=== PATIENT | male | born 1945 | race Caucasian/White ===

== ENCOUNTER → 2017-10-03 | Outpatient (CLI) | payer OTHER, MEDICARE ==
[~2017-10-03] MED LIST: ASPIRIN ADULT L81 M1 PO; HYDROCODONE-AC1 EAC1 PO; MORPHINE S10 MG/5 M1 PO; TAMSULOSIN HCL0.4 MG PO
== END | disposition home or self-care (01) ==
LOC: US 10:39
DX: R10.9 Unspecified abdominal pain (principal); R39.198 Other difficulties with micturition

== ENCOUNTER 2017-10-10 10:02 | Inpatient (IN) | payer OTHER, MEDICARE ==
[~2017-10-10] VITALS: Ht 185.4 cm; Wt 122.7 kg
--- NOTE | ~2017-10-10 | CON ---
[place], [place] REPORT OF CONSULTATION [id number] UNIT #: [id number] ROOM: 426 DOCTOR: SAÚL FELICIANO MD BIRTHDATE: [birth year] DOS: 10/11/2017 HISTORY OF PRESENT ILLNESS: The patient is a pleasant 71-year-old [place] gentleman who says that if he became dizzy and fell down, started having pain in the right shoulder. He also has been complaining of right rib pain and upper abdominal pain. He thought it was just a fall, which is causing the pain, but subsequently his brought him to the ER. Further workup revealed consistent with CAT scans that he has a mass in the liver as well as mets to the bones and consulted for further evaluation and management. PAST MEDICAL HISTORY: Denies any past medical history. PAST SURGICAL HISTORY: Appendectomy, tonsillectomy. SOCIAL HISTORY: No history of transfusion. Current 1 pack per day smoking. FAMILY HISTORY: Father congestive heart failure. Mother, congestive heart failure. ALLERGIES: PENICILLIN AND ANTIBIOTICS. MEDICATIONS: Aspirin. RADIOLOGY: CT scan of the chest, abdomen, and pelvis done on 10/10/2017 showed multiple destructive bony metastases as well as a large mass in the anterior left fifth rib, an additional mass in the right 4th rib, suspected metastasis to the right 7th and 10th rib in the medial left ilium in the right sacral body, right iliac wing and possible metastasis at C6. He has a large mass suspected in the right lobe of the liver, an incidental cholelithiasis. REVIEW OF SYSTEMS CONSTITUTIONAL: No chills. No fatigue. No fever. No loss of appetite. No night sweats. No weakness. No weight loss. HEENT: No trouble swallowing. No loss of smell. No loss of hearing. No double vision. No pain. No discharge. ENT AND RESPIRATORY: No wheeze. No sore throat. No change in voice. No hearing loss. No nose bleed. No cough. No trouble breathing through nose. No shortness of breath. No coughing up blood. No epistaxis. CARDIOVASCULAR: No chest pain. No dizziness. No irregular heartbeat. No leg edema. No pain in legs while walking. No palpitations. No shortness of breath. DERMATOLOGIC: No acne. No hives. No laceration. No mole. No rash. ENDOCRINE: No cold intolerance. No diabetes. No fatigue. No hot flashes. No polydipsia. No polyuria. No urinating frequently. No weight loss. HEMATOLOGIC AND LYMPH: No fatigue. No easy bruising. GASTROENTEROLOGIC: No change in bowel habits. No indigestion. No frequent bloating. No vomiting blood. No abdominal cramping. No nausea. No heartburn. No vomiting. No abdominal pain. No dysphagia. No diarrhea. No constipation. No blood in stool. MALE REPRODUCTIVE: No testicular pain. No difficulty with erection. No [place], [place] REPORT OF CONSULTATION NAME: ATIF ADDISON UNIT #: [id number] ROOM: 426 DOCTOR: SAÚL FELICIANO MD BIRTHDATE: [birth year] diminished sexual drive. No penile discharge. MUSCULOSKELETAL: No back pain. No muscle pain or weakness. No neck pain. No tingling/numbness. No swelling/bruising. No osteoporosis treatment. OPTHALMOLOGIC: No double vision. No diminished vision. No loss of vision. UROLOGIC: No dysuria. No frequent nighttime urination. No pain with urination. No difficulty urinating. No blood in urine. No frequent urination. No urinary incontinence. NEUROLOGIC: No loss of sensation in specific body area. No vertigo. No burning pain in feet. No trouble with balance. No trouble with coordination. No loss of consciousness. No loss of feeling/power. No confusion. No headache. No tingling/numbness. PSYCHOLOGIC: No tinnitus. No headaches. No shortness of breath. No weight decrease. No nausea. No vomiting. No abdominal discomfort. No constipation. No diarrhea. No depression. No anxiety. PHYSICAL EXAMINATION: GENERAL: General appearance: Pleasant gentleman in no apparent distress. VITAL SIGNS: Stable. He is afebrile. HEENT: Oral mucosa appears intact. The external ears are normal in appearance. Nares are patent without lesions, exudates, erythema, or inflammation. Tongue is symmetrical. Uvula is midline. NECK AND THYROID: Neck supple without palpable masses. Trachea is midline. No thyromegaly. No carotid bruit or JVD. BREASTS: Normal. Nipples unremarkable. No drainage. No lumps felt on either side. HEART: Normal S1, S2, without significant murmur, rub, or gallop. LUNGS: Clear to auscultation and percussion with good air entry bilaterally. The patient is breathing easily without the use of accessory muscles. Diaphragmatic excursions are intact. ABDOMEN: No costovertebral angle tenderness. Soft. No organomegaly or masses. Nontender. No hernias present. Liver and spleen are not palpable. LYMPHATIC: No adenopathy noted in the cervical, supraclavicular, axillary, or inguinal regions. NEUROLGIC: Nonfocal. Oriented to person, place, and time. MENTAL STATUS: Appropriate for mood and affect. PERIPHERAL PULSES: No varicosities. Femoral and pedal pulses are palpable. EXTREMITIES: Without cyanosis, clubbing, or edema. No gross anomalies. LABORATORY DATA: Sodium 138, potassium 4.3, chloride 101, bicarbonate 30, EGFR is 56, calcium 9.4. White count of 9.8, hemoglobin 15.1, hematocrit 47.5, MCV 94.6, platelet count of 209,000. ASSESSMENT: 1. Large mass in the liver. 2. 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 3. Right shoulder injury. PLAN: We will wait for the CT-guided biopsy of the liver to be done. In the meantime, Dr. Arellano to evaluate the GI tract. We will also get tumor markers depending on further intervention. I had a detailed discussion with the patient [place], [place] REPORT OF CONSULTATION NAME: ATIF ADDISON UNIT #: [id number] ROOM: 426 DOCTOR: SAÚL FELICIANO MD BIRTHDATE: [birth year] about it, seemed to understand it. Ample time was given to the patient to ask me questions. We will follow. Workup has been ordered. Thanks for consulting and letting participate in the care of this interesting patient. SAÚL FELICIANO MD CM:CONSTR:REPORT OF CONSULTATION 0919 10/12/17 0045 interface
--- NOTE | ~2017-10-10 | O ---
[place], [place] OPERATIVE NOTE NAME: ATIF ADDISON UNIT #: [id number] ROOM: 426 DOCTOR: MILDRED DELUNA,UDAY BIRTHDATE: [birth year] DOS: 10/11/2017 The patient has presented with coincidental finding of metastatic lesions to the ribs, bone, liver, possibly mass secondary to metastasis, possibly. Today's procedure part of investigation of colonoscopy to rule out primary source. PREMEDICATIONS: Propofol. SCOPE: Olympus forwarding colonoscope 10L video. REPORT: After putting the patient in left lateral position and application of lubricant to rectal pouch and digital examination, scope was introduced. Thereafter, under direct visualization, and sent to base of cecum, ileocecal valve was defined. The scope was gradually withdrawn back to the rectal pouch. Three sessile polypoid lesions with a snare polypectomy was removed, samples recovered. The patient extubated, tolerated procedure well. IMPRESSION: Colon with 3 small sessile polypoid lesion in the rectal pouch. No source of primary carcinoma and colon identified. The patient tolerated the procedure well. PLAN ON DISCUSSION: Liver mass for biopsy to be scheduled after assuring that the patient is off aspirin and blood thinners. UDAY LEVY MD CM:OPRECORD:OPERATIVE NOTE [id number] UDAY LEVY MD 10/12/17 0516 interface
--- NOTE | ~2017-10-10 | CON ---
[place], [place] REPORT OF CONSULTATION NAME: [facility]DISON [id number] UNIT #: [id number] ROOM: 426 DOCTOR: UDAY LEVY MD BIRTHDATE: [birth year] DOS: 10/11/2017 HISTORY OF PRESENT ILLNESS: A 71-year-old patient who presented for routine evaluation during the course of evaluation, it has been found that he has a metastatic disease and workup therefore, in progress. I have been asked for a colonoscopic evaluation of the patient. However, at the time of admission, he has white blood cell of 9, H and H of 15 and 45, platelets 208,000. Comprehensive metabolic panel, alkaline phosphatase elevation to 176. C-reactive protein 3. BNP 134. Troponin normal. Lactic acid 4.3. INR 1.0, right shoulder x-ray, normal right shoulder, there is no evidence of injury. CT scan of the abdomen and pelvis was done and suspected limited contrast. I expected inferior L3 vertebral body fracture and multiple large destructive bone metastases left ribs and right 7th ribs and details per chart large suspected right lobe of liver mass, incidental cholelithiasis all has been recognized. Normal right humerus and urine cultures negative. PAST MEDICAL HISTORY: Associated medical surgical history, appendectomy, tonsillectomy. SOCIAL HISTORY: In the past alcohol consumer, smoker, presently 1 pack a day. ALLERGIES: PENICILLIN. MEDICATIONS: At home limited to aspirin. REVIEW OF SYSTEMS: HEENT: Denies double vision, blurred vision. RESPIRATORY: Denies shortness of breath. CARDIOVASCULAR: Denies chest pain. DIGESTIVE SYSTEM: No nausea, vomiting, no diarrhea. PHYSICAL EXAMINATION: VITAL SIGNS: Stable. HEENT: Head normocephalic, nontraumatic. Mouth and buccal mucosa benign. NECK: Supple, no thyromegaly, no cervical lymphadenopathy. CHEST: Symmetric anatomy, equal expansion. No wheeze, no rhonchi. HEART: Normal sinus rhythm, no gallop, no murmur. ABDOMEN: Soft. No hepato-organomegaly. Bowel sounds present. No pulsatile mass. EXTREMITIES: No cyanosis, no pedal edema. NEUROLOGIC: Alert, oriented to time, place, person. IMPRESSION: Metastatic disease to bone and liver. PLAN AND DISCUSSION: We are going to do a colonic screening to rule out the source of metastasis from colon. Other adjunctive diagnoses, bony lytic lesions and elevated alkaline phosphatase and plans for definitive tissue diagnosis as needed, liver biopsy under sonographic guidance needed. Thank you very much indeed. We are going to proceed with colonoscopy. [place], [place] REPORT OF CONSULTATION NAME: ATIF ADDISON UNIT #: [id number] ROOM: 426 DOCTOR: UDAY LEVY MD BIRTHDATE: [birth year] UDAY LEVY MD CM:CONSTR:REPORT OF CONSULTATION 1453 10/12/17 0514 interface
--- NOTE | ~2017-10-10 | EKG ---
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
[2017-10-10 10:06] VITALS: BP 163/79
[2017-10-10] MEDS ORDERED: TAMSULOSIN HCL0.4 MG PO (10:06)
[2017-10-10 11:14] LABS: BASO # 0.1 10*3/uL (0.0-0.1); BASO % 0.6 % (0.0-1.0); EOS # 0.1 10*3/uL (0.0-0.4); EOS % 0.5 % (1.0-4.0); HEMATOCRIT 47.5 % (42.0-52.0); HEMOGLOBIN 15.1 g/dl (14.0-18.0); LYMPH # 1.1 10*3/uL (1.3-4.4); LYMPH % 11.7 % (27.0-41.0); MEAN CELL VOLUME 94.6 fl (80.0-94.0); MEAN CORPUSCULAR HGB 30.1 pg (27.0-31.0); MEAN CORPUSCULAR HGB CONC 31.8 g/dl (33.0-37.0); MEAN PLATELET VOLUME 11.4 fl (9.6-12.3); MONO # 0.7 10*3/uL (0.1-1.0); MONO % 7.2 % (3.0-9.0); NEUT # 7.8 10*3/uL (2.3-7.9); NEUT % 79.5 % (47.0-73.0); PLATELET COUNT AUTOMATED 209 10*3/uL (130-400); RED BLOOD COUNT 5.02 10*6/uL (4.50-5.90); WHITE BLOOD COUNT 9.8 10*3/uL (4.8-10.8)
[2017-10-10 11:27] VITALS: BP 148/82
[2017-10-10 11:29] LABS: ALBUMIN 3.4 gm/dl (3.1-4.5); ALKALINE PHOSPHATASE 176 U/L (45-117); BUN 17 mg/dl (7-24); CHLORIDE 101 mmol/L (98-107); CREATININE 1.27 mg/dL (0.70-1.30); LIPASE 127 U/L (73-393); POTASSIUM 4.3 mmol/L (3.5-5.1); SGOT/AST 30 IU/L (3-35); SGPT/ALT 28 U/L (12-78); SODIUM 138 mmol/L (136-145); TOTAL PROTEIN 8.6 gm/dL (6.4-8.2)
[2017-10-10 11:30] LABS: TROPONIN I < 0.015 ng/ml (<0.045)
[2017-10-10 11:34] LABS: BILIRUBIN 1+ (NEGATIVE); BLOOD NEGATIVE (NEGATIVE); CLARITY CLEAR (CLEAR); COLOR ORANGE (YELLOW); GLUCOSE TRACE (NEGATIVE); KETONE TRACE (NEGATIVE); LEUKO ESTERASE NEGATIVE (NEGATIVE); NITRITE POSITIVE (NEGATIVE); SPECIFIC GRAVITY 1.025 (1.005-1.030)
[2017-10-10 11:41] LABS: BACTERIA 2+; CALCIUM OXALATE CRYSTALS 1+; EPITHELIAL CELLS 0-2
[2017-10-10 12:33] VITALS: BP 115/74
[2017-10-10 14:45] VITALS: BP 124/80
[2017-10-10] MEDS ORDERED: ASPIRIN ADULT L81 M1 PO (15:46)
[2017-10-10 16:00] VITALS: BP 124/80
[2017-10-10 20:00] VITALS: BP 126/73
[2017-10-11] VITALS (9 sets, daily range): BP systolic 102–150; BP diastolic 64–84
[2017-10-11 07:08] LABS: BASO % 0.5 % (0.0-1.0); EOS # 0.1 10*3/uL (0.0-0.4); EOS % 0.6 % (1.0-4.0); HEMATOCRIT 43.4 % (42.0-52.0); LYMPH # 0.8 10*3/uL (1.3-4.4); LYMPH % 9.5 % (27.0-41.0); MEAN CELL VOLUME 91.6 fl (80.0-94.0); MEAN CORPUSCULAR HGB 29.5 pg (27.0-31.0); MEAN CORPUSCULAR HGB CONC 32.3 g/dl (33.0-37.0); MEAN PLATELET VOLUME 11.5 fl (9.6-12.3); MONO # 0.7 10*3/uL (0.1-1.0); MONO % 7.9 % (3.0-9.0); NEUT # 7.2 10*3/uL (2.3-7.9); PLATELET COUNT AUTOMATED 195 10*3/uL (130-400); RED BLOOD COUNT 4.74 10*6/uL (4.50-5.90); RED CELL DISTRI WIDTH 13.6 % (0-14.5); WHITE BLOOD COUNT 8.9 10*3/uL (4.8-10.8)
[2017-10-11 07:28] LABS: ALKALINE PHOSPHATASE 176 U/L (45-117); BUN 14 mg/dl (7-24); CHLORIDE 101 mmol/L (98-107); CREATININE 1.01 mg/dL (0.70-1.30); POTASSIUM 3.9 mmol/L (3.5-5.1); SGOT/AST 32 IU/L (3-35); SGPT/ALT 33 U/L (12-78); SODIUM 136 mmol/L (136-145); TOTAL PROTEIN 7.7 gm/dL (6.4-8.2)
[2017-10-12] VITALS: BP 98/52
[2017-10-12 08:00] VITALS: BP 112/65
[2017-10-12 12:00] VITALS: BP 137/68
[2017-10-12 16:00] VITALS: BP 120/60
[2017-10-12 20:00] VITALS: BP 130/65
[2017-10-13] VITALS: BP 145/66
[2017-10-13 08:00] VITALS: BP 128/70
[2017-10-13 12:00] VITALS: BP 132/69
[2017-10-13 16:00] VITALS: BP 139/71
[2017-10-13 20:00] VITALS: BP 148/62
[2017-10-14] VITALS: BP 128/74
[2017-10-14 06:11] LABS: BASO # 0.1 10*3/uL (0.0-0.1); BASO % 0.7 % (0.0-1.0); EOS # 0.2 10*3/uL (0.0-0.4); EOS % 2.3 % (1.0-4.0); HEMATOCRIT 40.2 % (42.0-52.0); HEMOGLOBIN 12.6 g/dl (14.0-18.0); LYMPH % 13.1 % (27.0-41.0); MEAN CELL VOLUME 94.8 fl (80.0-94.0); MEAN CORPUSCULAR HGB 29.7 pg (27.0-31.0); MEAN CORPUSCULAR HGB CONC 31.3 g/dl (33.0-37.0); MEAN PLATELET VOLUME 11.6 fl (9.6-12.3); MONO # 0.7 10*3/uL (0.1-1.0); MONO % 9.3 % (3.0-9.0); NEUT # 5.5 10*3/uL (2.3-7.9); NEUT % 73.9 % (47.0-73.0); PLATELET COUNT AUTOMATED 171 10*3/uL (130-400); RED BLOOD COUNT 4.24 10*6/uL (4.50-5.90); RED CELL DISTRI WIDTH 13.7 % (0-14.5); WHITE BLOOD COUNT 7.4 10*3/uL (4.8-10.8)
[2017-10-14 06:17] LABS: CREATININE 1.05 mg/dL (0.70-1.30)
[2017-10-14 08:00] VITALS: BP 119/62
[2017-10-14 12:00] VITALS: BP 112/68
[2017-10-14 16:00] VITALS: BP 135/73
[2017-10-14] MEDS ORDERED: HYDROCODONE-AC1 EAC1 PO (16:39)
== END 2017-10-14 17:12 | disposition home or self-care (01) | DRG 436 ==
LOC: ED 10:02 → 4E 13:40 → EDHOLD 13:40 → 4E 14:01
PROVIDERS: Emergency Medicine; Internal Medicine
PROC: 0FB13ZX Excision of Right Lobe Liver, Percutaneous Approach, Diagnostic (ICD-10-PCS; principal; 2017-10-10)
PROC: 0DBP8ZX Excision of Rectum, Via Natural or Artificial Opening Endoscopic, Diagnostic (ICD-10-PCS; 2017-10-11)
DX: C78.7 Secondary malignant neoplasm of liver and intrahepatic bile duct (principal); C79.51 Secondary malignant neoplasm of bone; S32.039A Unspecified fracture of third lumbar vertebra, initial encounter for closed fracture; R82.71 Bacteriuria; R80.9 Proteinuria, unspecified; E66.9 Obesity, unspecified; K80.20 Calculus of gallbladder without cholecystitis without obstruction; R79.89 Other specified abnormal findings of blood chemistry; F17.210 Nicotine dependence, cigarettes, uncomplicated; R74.8 Abnormal levels of other serum enzymes; W18.39XA Other fall on same level, initial encounter; Z88.0 Allergy status to penicillin; Z88.1 Allergy status to other antibiotic agents; Z79.82 Long term (current) use of aspirin; Z90.49 Acquired absence of other specified parts of digestive tract; Z82.49 Family history of ischemic heart disease and other diseases of the circulatory system; Z68.35 Body mass index [BMI] 35.0-35.9, adult; Y93.89 Activity, other specified; Y92.89 Other specified places as the place of occurrence of the external cause; Y99.8 Other external cause status

== ENCOUNTER 2017-10-21 11:38 | Inpatient (IN) | payer OTHER, MEDICARE ==
[2017-10-21] VITALS (7 sets, daily range): BP systolic 111–146; BP diastolic 71–85
[~2017-10-21] VITALS: Ht 182.8 cm; Wt 130.2 kg
--- NOTE | ~2017-10-21 | EKG ---
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
[~2017-10-21 11:38] MED LIST changes: -MORPHINE S10 MG/5 M1 PO
[2017-10-21 12:23] LABS: BASO % 0.4 % (0.0-1.0); EOS # 0.1 10*3/uL (0.0-0.4); EOS % 0.7 % (1.0-4.0); HEMATOCRIT 41.5 % (42.0-52.0); HEMOGLOBIN 13.2 g/dl (14.0-18.0); LYMPH # 1.1 10*3/uL (1.3-4.4); LYMPH % 13.4 % (27.0-41.0); MEAN CELL VOLUME 93.5 fl (80.0-94.0); MEAN CORPUSCULAR HGB 29.7 pg (27.0-31.0); MEAN CORPUSCULAR HGB CONC 31.8 g/dl (33.0-37.0); MONO # 0.8 10*3/uL (0.1-1.0); MONO % 9.4 % (3.0-9.0); NEUT # 6.4 10*3/uL (2.3-7.9); NEUT % 75.3 % (47.0-73.0); PLATELET COUNT AUTOMATED 170 10*3/uL (130-400); RED BLOOD COUNT 4.44 10*6/uL (4.50-5.90); RED CELL DISTRI WIDTH 13.8 % (0-14.5); WHITE BLOOD COUNT 8.5 10*3/uL (4.8-10.8)
[2017-10-21 12:31] LABS: ACT PARTIAL THROMBO TIME 24.3 SECONDS (20.8-31.5)
[2017-10-21 12:39] LABS: ALBUMIN 2.8 gm/dl (3.1-4.5); ALKALINE PHOSPHATASE 184 U/L (45-117); BUN 11 mg/dl (7-24); CHLORIDE 103 mmol/L (98-107); CREATININE 1.11 mg/dL (0.70-1.30); LIPASE 110 U/L (73-393); POTASSIUM 4.4 mmol/L (3.5-5.1); SGOT/AST 38 IU/L (3-35); SGPT/ALT 48 U/L (12-78); SODIUM 138 mmol/L (136-145); TOTAL PROTEIN 7.5 gm/dL (6.4-8.2)
[2017-10-21 12:44] LABS: TROPONIN I < 0.015 ng/ml (<0.045)
[2017-10-21 12:50] LABS: BILIRUBIN NEGATIVE (NEGATIVE); BLOOD NEGATIVE (NEGATIVE); CLARITY SL CLOUDY (CLEAR); COLOR YELLOW (YELLOW); GLUCOSE NEGATIVE (NEGATIVE); KETONE NEGATIVE (NEGATIVE); LEUKO ESTERASE NEGATIVE (NEGATIVE); NITRITE NEGATIVE (NEGATIVE)
[2017-10-21 13:07] LABS: EPITHELIAL CELLS 0-2; MUCOUS 2+; RBC 0-2 rbc/hpf (0-2)
[2017-10-22] VITALS: BP 135/70
[2017-10-22 08:00] VITALS: BP 122/71
[2017-10-22] MEDS ORDERED: MORPHINE S10 MG/5 M1 PO (11:57)
[2017-10-22 12:00] VITALS: BP 110/73
== END 2017-10-22 14:17 | disposition hospice, home (50) | DRG 189 ==
LOC: ED 11:38 → 4E 13:33 → EDHOLD 13:33 → 4E 13:39
PROVIDERS: Nurse Practitioner Family
DX: J96.01 Acute respiratory failure with hypoxia (principal); R65.11 Systemic inflammatory response syndrome (SIRS) of non-infectious origin with acute organ dysfunction; E46 Unspecified protein-calorie malnutrition; C22.0 Liver cell carcinoma; C79.51 Secondary malignant neoplasm of bone; R74.0 Nonspecific elevation of levels of transaminase and lactic acid dehydrogenase [LDH]; N40.1 Benign prostatic hyperplasia with lower urinary tract symptoms; R33.8 Other retention of urine; R73.9 Hyperglycemia, unspecified; M25.511 Pain in right shoulder; Z66 Do not resuscitate; Z51.5 Encounter for palliative care; E66.9 Obesity, unspecified; Z88.0 Allergy status to penicillin; Z88.1 Allergy status to other antibiotic agents; Z72.0 Tobacco use; Z91.030 Bee allergy status; Z79.82 Long term (current) use of aspirin; Z90.49 Acquired absence of other specified parts of digestive tract; Z82.49 Family history of ischemic heart disease and other diseases of the circulatory system; Z87.81 Personal history of (healed) traumatic fracture; Z88.8 Allergy status to other drugs, medicaments and biological substances; Z68.38 Body mass index [BMI] 38.0-38.9, adult